=== PATIENT | female | born 1965 | race Caucasian/White ===

== ENCOUNTER 2019-12-06 10:49 | Emergency (ER) | payer MEDICAID ==
[~2019-12-06] VITALS: Ht 157.5 cm; Wt 63.5 kg
[2019-12-06 10:54] VITALS: Ht 157.5 cm; Wt 63.5 kg
[2019-12-06 14:23] VITALS: BP 145/98
== END 2019-12-06 13:20 | disposition home or self-care (01) ==
LOC: ED 10:49
DX: B34.9 Viral infection, unspecified (principal); Z20.828 Contact with and (suspected) exposure to other viral communicable diseases; Z88.5 Allergy status to narcotic agent; Z90.49 Acquired absence of other specified parts of digestive tract
CPT/HCPCS: 87804; Q0092; U0003-CS

== ENCOUNTER 2019-12-10 06:28 | Emergency (ER) | payer MEDICAID ==
[~2019-12-10] VITALS: Ht 165.1 cm; Wt 70.0 kg
[2019-12-10 06:37] VITALS: Ht 165.1 cm; Wt 70.0 kg
[2019-12-10 08:37] VITALS: BP 129/76
== END 2019-12-10 08:37 | disposition home or self-care (01) ==
LOC: ED 06:28
DX: J06.9 Acute upper respiratory infection, unspecified (principal); Z88.5 Allergy status to narcotic agent